=== PATIENT | male | born 1970 | race Caucasian/White ===

== ENCOUNTER 2021-01-07 06:45 | Day surgery (SDC) | payer OTHER ==
[2021-01-03 12:04] VITALS: BMI 31.6
[~2021-01-07 06:45] MED LIST: LACTATED RINGERS 1,000 ML IV SCH
--- NOTE | 2021-01-07 07:19 | P.GSHP ---
History of Present Illness H&P Date: 01/07/21 CHIEF COMPLAINT: Colon screen HISTORY OF PRESENT ILLNESS: The patient is a 50-year-old male who presents for colon screen. Lower endoscopy was offered for further evaluation and management. PAST MEDICAL HISTORY: Please see list. PAST SURGICAL HISTORY: Please see list. MEDICATIONS: Please see list. ALLERGIES: Please see list. SOCIAL HISTORY: No illicit drug use FAMILY HISTORY: No reports of Crohn disease or ulcerative colitis. REVIEW OF ORGAN SYSTEMS: CONSTITUTIONAL: No reports of fevers or chills. PHYSICAL EXAM: VITAL SIGNS: Stable GENERAL: Well-developed pleasant in no acute distress. HEENT: No scleral icterus. Extraocular movements grossly intact. Moist buccal mucosa. NECK: Supple without lymphadenopathy. CHEST: Unlabored respirations. Equal bilateral excursions. CARDIOVASCULAR: Regular rate and rhythm. Distal 2+ pulses. ABDOMEN: Soft, nontender, nondistended. MUSCULOSKELETAL: No clubbing, cyanosis, or edema. ASSESSMENT: 1. Colon screen. PLAN: 1. Recommend proceeding with a lower endoscopy Past Medical History Past Medical History: Heart Failure, Hyperlipidemia, Hypertension, Skin Disorder, Sleep Apnea/CPAP/BIPAP, Thyroid Disorder Additional Past Medical History / Comment(s): ongoing rash from shingles on upper rt shoulder, History of Any Multi-Drug Resistant Organisms: None Reported Past Surgical History: Appendectomy, Heart Catheterization With Stent, Tonsillectomy Additional Past Surgical History / Comment(s): 2 cardiac stents, Past Anesthesia/Blood Transfusion Reactions: No Reported Reaction, Unable to Obtain Additional Past Anesthesia/Blood Transfusion Reaction / Comment(s): no family hx-adopted Date of Last Stent Placement:: 2014 Smoking Status: Current every day smoker - Past Family History Mother Family Medical History: Unable to Obtain Additional Family Medical History / Comment(s): adopted Medications and Allergies Home Medications Medication Instructions Recorded Confirmed Type Aspirin [Adult Low Dose Aspirin EC] 81 mg PO DAILY 01/03/21 01/03/21 History Atorvastatin [Lipitor] 80 mg PO HS 01/03/21 01/07/21 History Fluticasone Nasal [place] [Flonase 1 spray EA NOSTRIL DAILY PRN 01/03/21 01/03/21 History Nasal [place]] Furosemide [Lasix] 40 mg PO HS 01/03/21 01/07/21 History Levothyroxine Sodium [Synthroid] 175 mcg PO QAM 01/03/21 01/03/21 History Minocycline [Minocin] 50 mg PO Q12HR 01/03/21 01/07/21 History Nebivolol HCl [Bystolic] 5 mg PO DAILY 01/03/21 01/03/21 History Pregabalin [Lyrica] 150 mg PO TID 01/03/21 01/03/21 History Ubidecarenone [Co Q-10] 200 mg PO DAILY 01/03/21 01/07/21 History Allergies Allergy/AdvReac Type Severity Reaction Status Date / Time benzocaine [From Solarcaine] Allergy [place] Verified 01/03/21 11:54 triclosan [From Solarcaine] Allergy [place] Verified 01/03/21 11:54
[2021-01-07 07:20] VITALS: TEMP 97.2
[2021-01-07] MEDS ORDERED: PROPOFOL 10 MG/ML 20 ML VIAL IV ONE (07:26)
[2021-01-07] MEDS ORDERED: LIDOCAINE 1% INJ 10MG/ML (20 ML MDV) ONE (07:26)
--- NOTE | 2021-01-07 07:46 | P.PCN ---
Date of Procedure: 01/07/21 Description of Procedure: PREOPERATIVE DIAGNOSIS: Colonoscopy screening. Hypertensive heart disease with congestive heart failure POSTOPERATIVE DIAGNOSIS: Colonoscopy screening. Hypertensive heart disease with congestive heart failure Diverticulosis, scattered. OPERATION: Colonoscopy to the cecum, ileocecal valve and appendiceal orifice. SURGEON: Claudia Garcia MD. ANESTHESIA: MAC. INDICATIONS: The patient is a 50-year-old male who presents for colonoscopy screening. Benefits and risks were described and informed consent was obtained. DESCRIPTION OF PROCEDURE: The patient had undergone Sutab prep. The patient had been brought into the operating room and laid in the left lateral decubitus position. After adequate intravenous sedation, the rectum was examined with 2% lidocaine jelly. No external hemorrhoids were encountered. The rectal tone was within normal limits. No lesions were palpated in the rectal vault. An Olympus colonoscope was advanced until the cecum, ileocecal valve and appendiceal orifice were clearly viewed. The prep was excellent. Scattered diverticulosis was encountered. No colonic polyps were found. No evidence of focal colitis was found. Retroflexion of the scope demonstrated grade 2 internal hemorrhoids without active bleeding or inflammation. The colon was desufflated. The patient had tolerated the procedure well. Withdrawal time was over 6 minutes. FINDINGS: Aronchick preparation quality scale 1 (1-5) Internal hemorrhoids, grade 2 No external prolapsed hemorrhoids. No arteriovenous malformations. No adenomatous polyps. No focal colitis. RECOMMENDATIONS: Lower endoscopy in 10 years, 2030 Plan - Discharge Summary New Discharge Prescriptions: Continue Ubidecarenone [Co Q-10] 200 mg PO DAILY Fluticasone Nasal [place] [Flonase Nasal [place]] 1 spray EA NOSTRIL DAILY PRN PRN Reason: Allergy Symptoms Furosemide [Lasix] 40 mg PO HS Aspirin [Adult Low Dose Aspirin EC] 81 mg PO DAILY Minocycline [Minocin] 50 mg PO Q12HR Levothyroxine Sodium [Synthroid] 175 mcg PO QAM Pregabalin [Lyrica] 150 mg PO TID Nebivolol HCl [Bystolic] 5 mg PO DAILY Atorvastatin [Lipitor] 80 mg PO HS Discharge Medication List Aspirin [Adult Low Dose Aspirin EC] 81 mg PO DAILY 01/03/21 [History] Atorvastatin [Lipitor] 80 mg PO HS 01/03/21 [History] Fluticasone Nasal [place] [Flonase Nasal [place]] 1 spray EA NOSTRIL DAILY PRN 01/03/21 [History] Furosemide [Lasix] 40 mg PO HS 01/03/21 [History] Levothyroxine Sodium [Synthroid] 175 mcg PO QAM 01/03/21 [History] Minocycline [Minocin] 50 mg PO Q12HR 01/03/21 [History] Nebivolol HCl [Bystolic] 5 mg PO DAILY 01/03/21 [History] Pregabalin [Lyrica] 150 mg PO TID 01/03/21 [History] Ubidecarenone [Co Q-10] 200 mg PO DAILY 01/03/21 [History] Follow up Appointment(s)/Referral(s): Claudia Garcia MD [STAFF PHYSICIAN] - As Needed Patient Instructions/Handouts: Diverticulosis Diet (GEN), Diverticulosis (DC) Activity/Diet/Wound Care/Special Instructions: Repeat colonoscopy 10 years, 2030. Resume ASPIRIN Discharge Disposition: HOME SELF-CARE
[2021-01-07 08:04] VITALS: BP 111/66; PULSE 61; RESP 16
== END 2021-01-07 08:25 | disposition home or self-care (01) ==
LOC: ORWHC2ENDO 06:45
PROVIDERS: ATTEND Surgery Plastic and Reconstructive Surgery
DX: Z12.11 Encounter for screening for malignant neoplasm of colon (principal); K57.90 Diverticulosis of intestine, part unspecified, without perforation or abscess without bleeding; I25.10 Atherosclerotic heart disease of native coronary artery without angina pectoris; E78.5 Hyperlipidemia, unspecified; F17.210 Nicotine dependence, cigarettes, uncomplicated; G47.33 Obstructive sleep apnea (adult) (pediatric); E07.9 Disorder of thyroid, unspecified; Z79.82 Long term (current) use of aspirin; I11.0 Hypertensive heart disease with heart failure; F17.200 Nicotine dependence, unspecified, uncomplicated; I50.9 Heart failure, unspecified; Z79.01 Long term (current) use of anticoagulants; Z90.49 Acquired absence of other specified parts of digestive tract; Z95.5 Presence of coronary angioplasty implant and graft
CPT/HCPCS: G0121; J2001; J2704

== ENCOUNTER → 2021-03-05 | Outpatient (CLI) | payer OTHER ==
--- NOTE | 2021-03-05 10:54 | XR ---
Orbits HISTORY: MRI clearance 3 views of the orbits Orbits are intact. Paranasal sinuses are well aerated. Bone mineralization is normal. No radiopaque f oreign body is evident. IMPRESSION: No radiopaque foreign body within the orbits.
== END | disposition home or self-care (01) ==
LOC: RADXRMAIN 10:18
PROVIDERS: ATTEND Physician Assistant
DX: S46.001A Unspecified injury of muscle(s) and tendon(s) of the rotator cuff of right shoulder, initial encounter (principal); Z18.10 Retained metal fragments, unspecified; X58.XXXA Exposure to other specified factors, initial encounter
CPT/HCPCS: 70030